=== PATIENT | male | born 1975 | race Caucasian/White ===

== ENCOUNTER 2017-09-26 21:21 | Emergency (ER) | payer OTHER ==
[2017-09-26] MEDS ORDERED: Morphine 4 MG/ML Syringe IVPUSH PRN (21:27)
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
[2017-09-26] MEDS ORDERED: Ondansetron 4 MG Tab.DIS PO ONE (22:57)
--- NOTE | 2017-09-27 07:28 | CR ---
Left shoulder: Three views of left shoulder were obtained. Comparison: No prior left shoulder exam. Displaced clavicle fracture is noted. This presumably is acute. Fracture fragments are overlapping with foreshortening. Impression: 1. Left clavicle fracture as described above. Diagnostic code #3
--- NOTE | 2017-09-27 07:28 | CR ---
Chest: Frontal view of the chest was obtained. Comparison: No prior study. Heart size and mediastinum are normal. Lungs are clear. Bony structures show deformity of the left clavicle compatible with overlapping fracture, age indeterminate. Impression: 1. Left clavicle fracture as noted above. 2. Nothing acute is otherwise seen on frontal chest x-ray. Diagnostic code #3
== END 2017-09-26 23:17 | disposition home or self-care (01) ==
LOC: JD.ED 21:21
DX: S42.022A Displaced fracture of shaft of left clavicle, initial encounter for closed fracture (principal); V86.99XA Unspecified occupant of other special all-terrain or other off-road motor vehicle injured in nontraffic accident, initial encounter
CPT/HCPCS: 71045; 73030; 96374; 99285; A9270; J2270; 99284